=== PATIENT | male | born 1965 | race African-American/Black ===

== ENCOUNTER 2019-09-15 13:50 | Emergency (ER) | payer OTHER ==
[~2019-09-15] VITALS: Ht 172.7 cm; Wt 114.5 kg
[2019-09-15 14:04] VITALS: BP 116/83
== END 2019-09-15 14:18 | disposition home or self-care (01) ==
LOC: EMS 13:54
DX: Z03.818 Encounter for observation for suspected exposure to other biological agents ruled out (principal)
CPT/HCPCS: Z7502

== ENCOUNTER 2019-09-20 13:17 | Emergency (ER) | payer OTHER ==
[~2019-09-20] VITALS: Ht 172.7 cm; Wt 113.6 kg
[2019-09-20 13:28] VITALS: BP 130/74
== END 2019-09-20 14:00 | disposition home or self-care (01) ==
LOC: EMS 13:20
DX: Z03.818 Encounter for observation for suspected exposure to other biological agents ruled out (principal)
CPT/HCPCS: 99283; U0003